=== PATIENT | male | born 1955 | race Two or more races ===

== ENCOUNTER 2020-08-17 19:39 | Emergency (ER) | payer MEDICAID ==
[~2020-08-17] VITALS: Ht 170.2 cm; Wt 83.6 kg
[2020-08-17 22:28] VITALS: BP 139/80
== END 2020-08-17 23:00 | disposition home or self-care (01) ==
LOC: EMS 19:39
DX: L01.00 Impetigo, unspecified (principal)
CPT/HCPCS: 99283; Z7502